=== PATIENT | male | born 1950 | race Caucasian/White ===

== ENCOUNTER 2018-12-04 19:47 | Emergency (ER) | payer OTHER ==
[~2018-12-04] VITALS: Ht 177.8 cm; Wt 96.2 kg
[2018-12-04] MEDS ORDERED: COZAAR 50 MG TA50 M1 PO (20:04)
[2018-12-04] MEDS ORDERED: NORVASC5 MG PO (20:04)
[2018-12-04] MEDS ORDERED: LIPITOR80 MG PO (20:04)
[2018-12-04] MEDS ORDERED: ASA5UEC PO (20:05)
[2018-12-04] MEDS ORDERED: PREDNISONE50 MG PO (21:49)
[2018-12-04] MEDS ORDERED: EPIPEN0.3 MG/0.1 IM (21:49)
[2018-12-04 22:01] VITALS: BP 137/72
== END 2018-12-04 22:02 | disposition home or self-care (01) ==
LOC: M.ERS 19:47
DX: T63.441A Toxic effect of venom of bees, accidental (unintentional), initial encounter (principal); T78.2XXA Anaphylactic shock, unspecified, initial encounter; Y92.89 Other specified places as the place of occurrence of the external cause

== ENCOUNTER 2019-10-20 11:40 | Inpatient (IN) | payer OTHER ==
[~2019-10-20] VITALS: Ht 172.7 cm; Wt 81.7 kg
[~2019-10-20 11:40] MED LIST: ASA5UEC PO; COZAAR 50 MG TA50 M1 PO; EPIPEN0.3 MG/0.1 IM; LIPITOR80 MG PO; NORVASC5 MG PO; PREDNISONE50 MG PO
[2019-10-20 11:52] VITALS: BP 164/72
[2019-10-20] MEDS ORDERED: PLAVIX 75 MG TA75 MG PO (12:16)
[2019-10-20 12:28] LABS: ABSOLUTE EOSINOPHILS 0.2 thou/uL (0.0-0.7); ABSOLUTE MONOCYTES 0.5 thou/uL (0.0-1.2); BASOPHILS 0.7 %; EOSINOPHILS 3.6 %; HEMOGLOBIN 15.2 gm/dL (14.0-18.0); LYMPHOCYTES 16.9 %; MCH 33.7 pg (26.0-34.0); MCHC 34.6 g/dL (28.0-37.0); MCV 97.5 fL (80.0-100.0); MONOCYTES 8.5 %; MPV 8.8 fl. (7.2-11.1); NUCLEATED RBCS 0 /100WBC; PLATELET COUNT* 194 thou/uL (150-400); POLYS 70.3 %; RBC 4.51 mil/uL (4.50-6.00); RDW-CV 13.2 % (10.5-14.5); WBC 5.8 thou/uL (4.0-11.0)
[2019-10-20 12:36] LABS: CALCIUM 8.4 mg/dL (8.5-10.1); CREATININE 1.1 mg/dL (0.6-1.3); POTASSIUM 3.8 mmol/L (3.5-5.1)
[2019-10-20 12:41] LABS: PCO2 35.1 mmHg (35.0-45.0); PO2 103.3 mmHg (75.0-100.0)
--- NOTE | 2019-10-20 12:46 | NUR ---
PT TO MRI
[2019-10-20 12:47] LABS: ALBUMIN 3.7 g/dL (3.4-5.0); MAGNESIUM 2.2 mg/dL (1.8-2.4); TOTAL BILIRUBIN 0.7 mg/dL (<0.1-1.0); TOTAL PROTEIN 6.7 g/dL (6.4-8.2)
--- NOTE | 2019-10-20 14:17 | NUR ---
PT BACK IN FROM FROM MRI
[2019-10-20 15:09] LABS: URINE BILIRUBIN NEGATIVE (Negative); URINE BLOOD NEGATIVE (Negative); URINE CLARITY CLEAR; URINE COLOR YELLOW; URINE GLUCOSE-RANDOM NEGATIVE (Negative); URINE KETONES NEGATIVE (Negative); URINE LEUKOCYTES-REFLEX NEGATIVE (Negative); URINE NITRITE-REFLEX NEGATIVE (Negative); URINE PROTEIN NEGATIVE (Negative); URINE UROBILINOGEN 0.2 E.U./dl (0.2-1.0)
--- NOTE | 2019-10-20 15:24 | EKG ---
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: : 1950 Requested By: Franny Hidalgo Order Number: [id number] MD: Salvador Graham Measurements Intervals Aurora Rate: 66 P: 88 AK: 162 QRS: 71 QRSD: 115 T: 59 QT: 396 QTc: 415 Interpretive Statements Sinus rhythm Nonspecific intraventricular conduction delay Nonspecific repol abnormality, lateral leads Baseline wander in lead(s) I,III,aVR,aVL,aVF,V2,V3 No previous ECG available for comparison Electronically Signed On 10-20-2019 15:24:48 CDT by Salvador Graham [email or web address] <ELECTRONICALLY SIGNED> By: Salvador Graham MD, [facility] 10/20/19 1524 1207 1207 Salvador Graham MD, [facility] /EPI
[2019-10-20 16:00] LABS: APTT 25.9 Seconds (25.0-31.3); PROTIME 10.3 Seconds (9.20-11.50)
--- NOTE | 2019-10-20 19:00 | NUR ---
RECIEVED REPORT AND ASSUMED CARE OF PT. PT BOARDING IN ED.
[2019-10-20 19:34] VITALS: BP 140/80
--- NOTE | 2019-10-20 21:04 | NUR ---
SPOKE WITH DR MAYES. PT TO BE TRANSFERED TO [facility] FOR NEURO SUGURY CONSULT. DR DOWD TO BE ACCEPTING [facility]. NURSING MACHINIST FIRST CLASS NOTIFIED. AWAITING CALL FROM TRANSFER CENTER.
--- NOTE | 2019-10-20 21:46 | NUR ---
DR MAYES WITH PT AT 2114. ORDER RECIEVED TO TRANSFER PT TO [facility] FOR [facility]GURY CONSULT. DR MAYES EXPLAINED REASONS FOR TRANSFER TO PT. PT AGREES TO TRANSFER. SPOKE WITH WILSON AT TRANSFER TEAM. RECIEVED ROOM NUMBER AND ACCEPTING PHYSICAN. DR PARKER NOTIFIED REGARGDING NEED TO TRANSFER TO HIGHER LEVEL OF CARE, ORDER RECIEVED. WAITING FOR CALL BACK FROM NURSING STAFF TO GIVE REPORT.
--- NOTE | 2019-10-20 22:18 | NUR ---
REPORT GIVEN TO RECIEVING NURSE, WILFRID DIAZ AT [facility]. WAITING FOR [facility] TO TRANSFER PT. PT UPDATED ON ROOM NUMBER AND DETAILS OF TRANSFER.
[2019-10-20 23:00] VITALS: BP 126/80
--- NOTE | 2019-10-20 23:02 | NUR ---
PT LEFT FACILITY AT THIS TIME WITH [facility].
--- NOTE | 2019-10-22 20:00 | CON ---
[address] [address] CONSULTATION Name: DEBBIE PEÑALOZA Room: [address] IN .R.#: [id number] Admission: 10/20/19 Attend Phys: Yared Cash MD Discharge: 10/20/19 Date of : 46 Report #: [id number] THIS REPORT FOR: //name// cc: Minor Gunter MD, Richard C. MD ~ THIS REPORT FOR: //name// CC: [facility] physician/PCP Yared Cash DATE OF SERVICE: 10/20/2019 HISTORY OF PRESENT ILLNESS: This is a 68-year-old male patient who was evaluated by me for a complicated history. I talked to admitting doctor, Dr. Cash multiple times and I talking to Dr. Hidalgo earlier today. Most of the history is provided by the patient and the daughter. The patient himself is conscious and alert and is able to provide reasonably good history. His symptoms started about 4-6 weeks ago. He was having tingling and numbness in both hands. It progressed to the point where he had trouble with finer coordination. 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 Subsequently, he had trouble with buttoning his shirt, so looks like he had progressive deterioration with finer coordination. Then, he started having pretty unsteady gait. In fact that led to the fall and he came here. He saw a primary doctor and then he said he also had an appointment with another doctor. He also had an appointment with a neurologist, but that was few months from now as I understand. He came to Emergency Room because his symptoms were becoming worse and he was having, but looks like difficulty with ambulation and falls. He was seen by Dr. Hidalgo and she initially did his MRI of the brain and subsequently did an MRI of the C-spine. I reviewed films of both of them and that will be summarized below. REVIEW OF SYSTEMS: Positive for cardiac problems in the past, but presently he is stable. He does drink alcohol, but he says he drinks up to 5-6 beers on the weekend days and less on the weakness. He denies any trauma to the head and his symptoms is progressively becoming worse for at least a month, maybe somewhat longer than that. He also has some pain, which radiates down to his shoulder. He was here for another emergency visit in the past for anaphylaxis. This was his relevant 14-point review of system. PAST MEDICAL HISTORY: Negative for any stroke. FAMILY HISTORY: Negative for any early age stroke. SOCIAL HISTORY: He drinks alcohol. He does not drink hard liquor, but he drinks about 5-6 beers on the weekend and about couple of them during [place] [address] CONSULTATION Name: DEBBIE PEÑALZOA Room: [address] IN [facility]#: [id number] Admission: 10/20/19 Attend Phys: Yared Cash MD Discharge: 10/20/19 Date of : 46 Report #: [id number] PHYSICAL EXAMINATION: Indicate, he is alert. He is responsive. He is able to follow simple and complex command. His speech looks unremarkable. His memory appeared to be his baseline. Cranial nerve examination indicates problem with the right eye since childhood injury, but was otherwise unremarkable. He has some decreased strength in all 4 extremities. I did not make him walk because he is pretty unstable in walking. His position sense is decreased. He has hyperreflexia in both lower extremities except the knee where he has injury in the past. He has persistently upgoing plantars on both sides. He does ghndyj-ot-cffq and mfng-jh-uqdc reasonably well, although he may have some trouble with gcle-br-byzv, but that is difficult to tell. Cardiac and respiratory examinations appear noncontributory. His vital signs are maintained with a blood pressure 126/80, respirations 18, pulse is 78, temperature is 98.5. LABORATORY DATA: Indicate normal sodium and normal WBC count. His MRI films were reviewed and it is impressive. He has finding consistent with a C3-C4 myelopathy. That will correlate with his clinical symptoms. IMPRESSION: 1. Myelopathy both clinically as well as radiologically. 2. History of somewhat more than moderate alcohol intake. 3. Prior knee problem. 4. Baseline eye problem. I discussed the situation in detail with the patient as well as admitting physician, Dr. Cash. This patient had a clinically as well as radiologically cervical myelopathy. After talking to the admitting physician, my recommendation was to transfer him to some other facility. I gave them the choice of going to any place what their choice. They have been to [facility] for his heart. They wanted to go there. I told [facility] on their behalf to the transport team. They indicated that they will refer this patient to [facility]. I discussed that aspect with them. That is why they wanted to go. Initially, they wanted to go on their own, but subsequently they said they will go with an ambulance. I discussed all of their options and multiple meetings with them before and after talking to I discussed with them that may do more testing like EMG and further management will be deferred to [facility]. They are agreeable with that and I called Dr. Cash back and he is going to arrange the further paperwork, etc, to transfer the patient to [facility] and I discussed that aspect with nurse. More than 70 minutes of time was spent taking care of this patient [place] [address] CONSULTATION Name: DEBBIE PEÑALOZA Room: [address] [place] .R.#: [id number] Admission: 10/20/19 Attend Phys: Yared Cash MD Discharge: 10/20/19 Date of : 46 Report #: [id number] of time was spent counseling and coordinating the family as well as talking to other health child care aide to arrange this transfer. <ELECTRONICALLY SIGNED> By: Bernardo Altamirano MD 10/22/191999 2251 [id number] Altamirano MD /nt
== END 2019-10-20 23:00 | disposition short-term general hospital (02) | DRG 552 ==
LOC: M.ERS 11:40 → M.TBA-ER 16:21
PROVIDERS: Personal Emergency Response Attendant; ADMIT Internal Medicine; ATTEND Internal Medicine
DX: M48.02 Spinal stenosis, cervical region (principal); G99.2 Myelopathy in diseases classified elsewhere; I25.10 Atherosclerotic heart disease of native coronary artery without angina pectoris; M54.12 Radiculopathy, cervical region; H54.61 Unqualified visual loss, right eye, normal vision left eye; I10 Essential (primary) hypertension; Z79.899 Other long term (current) drug therapy; Z91.030 Bee allergy status; Z03.818 Encounter for observation for suspected exposure to other biological agents ruled out

== ENCOUNTER 2020-07-28 21:25 | Emergency (ER) | payer OTHER ==
[~2020-07-28] VITALS: Ht 177.8 cm; Wt 133.8 kg
[~2020-07-28 21:25] MED LIST changes: +PLAVIX 75 MG TA75 MG PO
[2020-07-28] MEDS ORDERED: CARVEDILOL12.5 MG PO (21:47)
[2020-07-28] MEDS ORDERED: CEPHALEXIN500 MG PO (23:15)
[2020-07-28 23:31] VITALS: BP 162/101
== END 2020-07-28 23:33 | disposition home or self-care (01) ==
LOC: M.ERS 21:25
DX: S51.012A Laceration without foreign body of left elbow, initial encounter (principal); Z91.030 Bee allergy status; W18.39XA Other fall on same level, initial encounter; Y93.89 Activity, other specified; Y92.89 Other specified places as the place of occurrence of the external cause; Y99.8 Other external cause status